=== PATIENT | male | born 1960 | race Caucasian/White ===

== ENCOUNTER 2023-06-02 08:40 | Outpatient (RCR) | payer OTHER, SELFPAY | END 2023-06-02 23:59 | disposition home or self-care (01) | LOC: RPT 08:40 | PROVIDERS: ATTENDING PHYSICIAN Physical Medicine & Rehabilitation; FAMILY PHYSICIAN Internal Medicine | DX: M54.51 Vertebrogenic low back pain (principal); M51.36 Other intervertebral disc degeneration, lumbar region; M48.061 Spinal stenosis, lumbar region without neurogenic claudication | CPT/HCPCS: 97110; 97162 ==

== ENCOUNTER 2023-07-06 14:03 | Outpatient (RCR) | payer OTHER, SELFPAY | END 2023-07-06 23:59 | disposition home or self-care (01) | LOC: RPT 14:03 | PROVIDERS: ATTENDING PHYSICIAN Physical Medicine & Rehabilitation; FAMILY PHYSICIAN Internal Medicine | DX: M54.51 Vertebrogenic low back pain (principal); M51.36 Other intervertebral disc degeneration, lumbar region; M48.061 Spinal stenosis, lumbar region without neurogenic claudication; Z73.6 Limitation of activities due to disability; R26.2 Difficulty in walking, not elsewhere classified | CPT/HCPCS: 97010; 97110; 97112 ==